=== PATIENT | male | born 1985 | race African-American/Black ===

== ENCOUNTER 2016-09-07 06:37 | Emergency (ER) | payer SELFPAY ==
[~2016-09-07] VITALS: Ht 157.5 cm; Wt 66.0 kg
[2016-09-07 06:39] VITALS: BP 128/66; PULSE 54; RESP 16; TEMP 98; O2SAT 100
[2016-09-07 07:35] LABS: AUTOMATED NEUTROPHIL # 2.4 TH/MM3 (1.8-7.7); BASOPHIL % 0.7 % (0.0-2.0); EOSINOPHIL # 0.1 TH/MM3 (0-0.4); EOSINOPHIL % 2.1 % (0.0-4.0); HEMATOCRIT 41.7 % (39.0-51.0); HEMO FLAGS DIFF FINAL; LYMPH % 36.3 % (9.0-44.0); LYMPHOCYTE # 1.6 TH/MM3 (1.0-4.8); MEAN CELL VOLUME 90.8 FL (80.0-100.0); MEAN CORPUSCULAR HEMOGLOBIN 31.4 PG (27.0-34.0); MEAN CORPUSCULAR HGB CONC 34.6 % (32.0-36.0); MONO % 7.3 % (0.0-8.0); NEUT % 53.6 % (16.0-70.0); PLATELET COUNT 135 TH/MM3 (150-450); RED BLOOD COUNT 4.59 MIL/MM3 (4.50-5.90); RED CELL DISTRIBUTION WIDTH 12.8 % (11.6-17.2); WHITE BLOOD COUNT 4.4 TH/MM3 (4.0-11.0)
[2016-09-07 07:41] LABS: BLOOD, URINE NEG (NEG); COMMENT (UR) CULT NOT INDICATED; CULTURE IF INDICATED CULT NOT INDICATED; GLUCOSE,URINE NEG (NEG); KETONE, URINE NEG (NEG); MUCUS URINE FEW /lpf (OCC); NITRITE,URINE NEG (NEG); SQUAMOUS EPITHELIAL CELL URINE <1 /hpf (0-5); URINE COLOR YELLOW (YELLW/STRAW)
[2016-09-07 07:50] LABS: ANION GAP 8 MEQ/L (5-15); AST (GOT) 24 U/L (15-37); BICARBONATE 27.4 MEQ/L (21.0-32.0); BLOOD UREA NITROGEN 14 MG/DL (7-18); CHLORIDE 106 MEQ/L (98-107); GLOMERULAR FILTRATION RATE 87 ML/MIN (>89); POTASSIUM 3.9 MEQ/L (3.5-5.1); SODIUM (NA) 141 MEQ/L (136-145)
[2016-09-07 07:54] LABS: ALKALINE PHOSPHATASE 70 U/L (45-117); ALT (GPT) 45 U/L (12-78); TOTAL BILIRUBIN ADULT 0.5 MG/DL (0.2-1.0)
--- NOTE | 2016-09-07 08:21 | PD ---
HPI Chief Complaint: Abdominal Pain Time Seen by Provider: 08:11 Travel History International Travel<30 days: No Contact w/Intl Traveler<30days: No Traveled to known affect area: No History of Present Illness HPI This is a 30-year-old male who presents to the emergency department with right sided chest and abdominal pain that started last night, severe, worsening, worse with movement and worse with deep breaths. 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 He denies any illicit drug use aside for marijuana. He denies any recent long trips or family history of blood clot. PFSH Past Medical History Diminished Hearing: No Social History Alcohol Use: Yes (Beer, Occasionally, 04/04/2016) Tobacco Use: No Substance Use: Yes (Marijuana, Daily, 04/05/2016) Allergies-Medications (Allergen,Severity, Reaction): Coded Allergies: No Known Allergies (Verified , 09/07/16) Reported Meds & Prescriptions Reported Meds & Active Scripts Active No Active Prescriptions or Reported Medications Physical Exam Narrative GENERAL:Well appearing, no acute distress SKIN: Warm and dry. HEAD: Atraumatic. Normocephalic. EYES: Pupils equal and round. No injection or drainage. ENT: Moist mucous membranes NECK: Trachea midline. CARDIOVASCULAR: Regular rate and rhythm. No murmur appreciated. Tender to palpation along the anterior right lower rib cage focally RESPIRATORY: Clear to auscultation. Breath sounds equal bilaterally. GASTROINTESTINAL: Abdomen soft, non-tender, nondistended. MUSCULOSKELETAL: No obvious deformities. NEUROLOGICAL: Awake and alert. No obvious cranial nerve deficits. Moving all extremities. PSYCHIATRIC: Appropriate mood and affect; insight and judgment normal. Data Data Last Documented VS Vital Signs Date Time Temp Pulse Resp B/P Pulse Ox O2 Delivery O2 Flow Rate FiO2 09/07/16 08:23 22 09/07/16 06:39 98.0 54 128/66 100 Orders Electrocardiogram (09/07/16 06:45) Complete Blood Count With Diff (09/07/16 07:05) Comprehensive Metabolic Panel (09/07/16 07:05) Urinalysis - C+S If Indicated (09/07/16 07:05) Iv Access Insert/Monitor (09/07/16 07:05) Oxygen Administration (09/07/16 07:05) Oximetry (09/07/16 07:05) Lipase (09/07/16 07:05) Chest, Single Ap (09/07/16 ) Ketorolac Inj (Toradol Inj) (09/07/16 08:30) Labs Laboratory Tests Test 09/07/16 09/07/16 07:20 07:26 Urine Color YELLOW Urine Turbidity CLEAR Urine pH 6.0 Urine Specific [place] 1.033 Urine Protein 30 mg/dL Urine Glucose (UA) NEG mg/dL Urine Ketones NEG mg/dL Urine Occult Blood NEG Urine Nitrite NEG Urine Bilirubin NEG Urine Urobilinogen 4.0 MG/DL Urine Leukocyte Esterase NEG Urine RBC 1 /hpf Urine WBC 1 /hpf Urine Squamous Epithelial <1 /hpf Cells Urine Mucus FEW /lpf Microscopic Urinalysis Comment CULT NOT INDICATED White Blood Count 4.4 TH/MM3 Red Blood Count 4.59 MIL/MM3 Hemoglobin 14.4 GM/DL Hematocrit 41.7 % Mean Corpuscular Volume 90.8 FL Mean Corpuscular Hemoglobin 31.4 PG Mean Corpuscular Hemoglobin 34.6 % Concent Red Cell Distribution Width 12.8 % Platelet Count 135 TH/MM3 Mean Platelet Volume 10.7 FL Neutrophils (%) (Auto) 53.6 % Lymphocytes (%) (Auto) 36.3 % Monocytes (%) (Auto) 7.3 % Eosinophils (%) (Auto) 2.1 % Basophils (%) (Auto) 0.7 % Neutrophils # (Auto) 2.4 TH/MM3 Lymphocytes # (Auto) 1.6 TH/MM3 Monocytes # (Auto) 0.3 TH/MM3 Eosinophils # (Auto) 0.1 TH/MM3 Basophils # (Auto) 0.0 TH/MM3 CBC Comment DIFF FINAL Differential Comment Sodium Level 141 MEQ/L Potassium Level 3.9 MEQ/L Chloride Level 106 MEQ/L Carbon Dioxide Level 27.4 MEQ/L Anion Gap 8 MEQ/L Blood Urea Nitrogen 14 MG/DL Creatinine 1.18 MG/DL Estimat Glomerular Filtration 87 ML/MIN Rate Random Glucose 89 MG/DL Calcium Level 8.7 MG/DL Total Bilirubin 0.5 MG/DL Aspartate Amino Transf 24 U/L (AST/SGOT) Alanine Aminotransferase 45 U/L (ALT/SGPT) Alkaline Phosphatase 70 U/L Total Protein 6.6 GM/DL Albumin 3.7 GM/DL Lipase 237 U/L [facility] Medical Decision Making Medical Screen Exam Complete: Yes Emergency Medical Condition: Yes Interpretation(s) No leukocytosis Electrolytes within normal limits Urinalysis negative for infection Chest x-ray: No acute process Differential Diagnosis Costochondritis, pleural effusion, pneumothorax, gastritis, pancreatitis Narrative Course This is a 30-year-old male who presents with right sided chest wall pain which is muscular in nature, hurts when he moves and hurts when he takes deep breaths. He is perc negative so I doubt pulmonary embolism. Labs were obtained which were reassuring and a chest x-ray was obtained which was negative for spontaneous pneumothorax or other acute process. I suspect the patient is costochondritis. He'll be discharged on anti-inflammatories. Diagnosis Primary Impression: Costochondritis Patient Instructions: General Instructions Additional Instructions: If you develop severe chest pain, shortness of breath, sweating, lightheadedness , dizziness or difficulty breathing return to the emergency department immediately. Followup with your primary care physician in 2-3 days if your symptoms are not resolved. Med/Other Pt SpecificInfo: Prescription(s) given Scripts Naproxen 500 Mg [id number] Mg PO BID PRN (PAIN SCALE 4 TO 10) #20 TAB Ref 0 Prov:Shahrzad Collado MD 09/07/16 Disposition: 01 DISCHARGE HOME Condition: Stable Shahrzad Collado MD Sep 07, 2016 08:21
[2016-09-07] MEDS ORDERED: KETOROLAC TROMETHAMINE 60 MG/2 ML (IM) VIAL IM ONE (08:30)
--- NOTE | 2016-09-07 09:05 | RADRPT ---
EXAM DATE/TIME: 09/07/2016 08:23 [place] COMPARISON: No previous studies available for comparison. INDICATIONS : Chest pain and difficulty taking in a deep breath. MEDICAL HISTORY : None. SURGICAL HISTORY : None. ENCOUNTER: Initial ACUITY: 2 days PAIN SCORE: 5/10 LOCATION: Bilateral chest FINDINGS: A single view of the chest demonstrates the lungs to be symmetrically aerated without evidence of mas s, infiltrate or effusion. The cardiomediastinal contours are unremarkable. Osseous structures are intact. CONCLUSION: 1. No acute cardiopulmonary findings identified. Raul Yancey MD on September 07, 2016 at 9:03 Board Certified Radiologist. This report was verified electronically.
[2016-09-07] MEDS ORDERED: NAPR500T PO (09:22)
[2016-09-07 09:30] VITALS: RESP 20
--- NOTE | 2016-09-07 12:26 | EKG ---
Date Performed: 09/07/2016 Time Performed: 07:11:29 PTAGE: 30 years EKG: SINUS BRADYCARDIA BORDERLINE RIGHT AXIS DEVIATION BORDERLINE ECG NO PREVIOUS TRACING DOCTOR: Harpreet Lawson Interpretating Date/Time 09/07/2016 12:22:22
== END 2016-09-07 10:02 | disposition home or self-care (01) ==
LOC: NEPE 06:37
DX: M94.0 Chondrocostal junction syndrome [Tietze] (principal); R10.9 Unspecified abdominal pain; R94.31 Abnormal electrocardiogram [ECG] [EKG]; F12.90 Cannabis use, unspecified, uncomplicated
CPT/HCPCS: 71010; 80053; 81001; 83690; 85025; 93005; 96372; 99285; J1885

== ENCOUNTER 2018-01-14 15:28 | Emergency (ER) | payer OTHER ==
[~2018-01-14] VITALS: Ht 152.4 cm; Wt 68.0 kg
[~2018-01-14 15:28] MED LIST: NAPR500T2 PO
[2018-01-14 15:39] VITALS: BP 155/73; PULSE 92; RESP 18; TEMP 98.6; O2SAT 99
--- NOTE | 2018-01-14 16:18 | PD ---
HPI . Laceration Chief Complaint: Laceration/Skin Injury Time Seen by Provider: 15:59 Travel History International Travel<30 days: No Contact w/Intl Traveler<30days: No Traveled to known affect area: No History of Present Illness HPI Patient presents with a chief complaint of a laceration to his right third finger. He states that he was working on a car sometime before lunch. His wrench slipped and he cut his hand on something under the garcia of the car. He is not sure exactly what it was that he cut it on. He does not know the date of his last tetanus shot. He reports pain in his finger since that time which she rates 8/10. [facility] Past Medical History Medical History: Denies Significant Hx Diminished Hearing: No Past Surgical History Surgical History: No Previous Surgery Social History Alcohol Use: Yes (occasionally ) Tobacco Use: No Substance Use: Yes (Marijuana, 04/05/2016) Allergies-Medications (Allergen,Severity, Reaction): Coded Allergies: No Known Allergies (Verified , 09/07/16) Reported Meds & Prescriptions Reported Meds & Active Scripts Active Naproxen 500 Mg Tab 500 Mg PO BID PRN Review of Systems Except as stated in HPI: all other systems reviewed are Neg Physical Exam Narrative GENERAL: Awake and alert and in no acute distress. SKIN: Warm and dry. He has a 1 cm laceration on the dorsal aspect of the right third finger distal to the MTP joint but proximal to the PIP joint. He is distally neurovascularly intact. HEAD: Normocephalic/atraumatic. EYES: Pupils are equal. Extraocular movements are intact. NECK: Normal range of motion. CARDIOVASCULAR: Regular rate and rhythm. RESPIRATORY: Nonlabored respirations. MUSCULOSKELETAL: Atraumatic. NEUROLOGICAL: Nonfocal. PSYCHIATRIC: Appropriate mood and affect. Data Data Last Documented VS Vital Signs Date Time Temp Pulse Resp B/P (MAP) Pulse Ox O2 Delivery O2 Flow Rate FiO2 01/14/18 15:39 98.6 92 18 155/73 (100) 99 MDM Medical Decision Making Medical Screen Exam Complete: Yes Emergency Medical Condition: Yes Differential Diagnosis Differential diagnosis includes but is not limited to skin laceration, muscular laceration, tendon laceration, neurovascular laceration. Narrative Course This patient presents with a laceration of his right third finger. This tetanus needs to be updated. Procedures Procedure Narrative LACERATION LOCATION: Right third finger LENGTH: 1 cm NUMBER OF STITCHES/CELSO: 2 REPAIR: The area of the laceration was prepped with Betadine. The laceration was infiltrated with 1% plain lidocaine. The wound was closed using 5-0 Prolene. This was a single layer repair. A sterile dressing was applied. The patient was advised to keep the dressing clean and dry. Patient tolerated the procedure well. Diagnosis Primary Impression: Finger laceration Qualified Codes: S61.212A - Laceration without foreign body of right middle finger without damage to nail, initial encounter Patient Instructions: General Instructions, Laceration (DC) Additional Instructions: Clean the wound twice daily with soap and water. Apply a thin layer of Neosporin ointment after you wash it. See your doctor in 7 days for suture removal. Seek care sooner for redness, drainage, warmth, unusual pain. Disposition: 01 DISCHARGE HOME Condition: Stable Rosanne Lundberg MD January 14, 2018 16:18
[2018-01-14] MEDS ORDERED: TETANUS/DIPHTHERIA TOXOID ADULT 0.5 ML VIAL IM ONE (16:30)
== END 2018-01-14 17:00 | disposition home or self-care (01) ==
LOC: NEPD 15:28
DX: S61.212A Laceration without foreign body of right middle finger without damage to nail, initial encounter (principal); Z23 Encounter for immunization; W45.8XXA Other foreign body or object entering through skin, initial encounter
CPT/HCPCS: 12001; 90471; 90714

== ENCOUNTER 2018-01-21 13:23 | Emergency (ER) | payer OTHER ==
[~2018-01-21] VITALS: Ht 160 cm; Wt 68.0 kg
[2018-01-21 13:32] VITALS: BP 137/75; PULSE 69; RESP 18; TEMP 98.8; O2SAT 100
--- NOTE | 2018-01-21 13:45 | PD ---
HPI Chief Complaint: Wound/Suture/Staple Re-Check Time Seen by Provider: 13:43 Travel History International Travel<30 days: No Contact w/Intl Traveler<30days: No Traveled to known affect area: No History of Present Illness HPI 32-year-old male presents to the emergency department for suture removal to his right middle finger. The sutures were placed on January 14. He denies swelling, redness, drainage from the wound site. Denies fever, vomiting. Symptoms are mild in severity. No known aggravating or relieving factors. No primary care provider. No known allergies. Has no other medical complaints. No other modifying factors or associated signs and symptoms. PFSH Past Medical History Diminished Hearing: No Social History Alcohol Use: Yes (occasionally ) Tobacco Use: No Substance Use: Yes (Marijuana, 04/05/2016) Allergies-Medications (Allergen,Severity, Reaction): Coded Allergies: No Known Allergies (Verified , 09/07/16) Reported Meds & Prescriptions Reported Meds & Active Scripts Active Naproxen 500 Mg Tab 500 Mg PO BID PRN Review of Systems Except as stated in HPI: all other systems reviewed are Neg Physical Exam Narrative GENERAL: Well-nourished, well-developed black male patient, in no acute distress SKIN: Warm and dry. Base of right third finger, to the anterior aspect, with laceration that is well approximated with sutures intact; without erythema, edema, drainage. No signs of infection. HEAD: Atraumatic. Normocephalic. EYES: Pupils equal and round. No scleral icterus. No injection or drainage. ENT: Mucosa pink and moist. Airway patent. NECK: Trachea midline. CARDIOVASCULAR: Regular rate. RESPIRATORY: No accessory muscle use. GASTROINTESTINAL: Flat. MUSCULOSKELETAL: No obvious deformities. No clubbing. No cyanosis. No edema. NEUROLOGICAL: Awake and alert. Oriented 3. No obvious cranial nerve deficits. Motor grossly within normal limits. Normal speech. PSYCHIATRIC: Appropriate mood and affect; insight and judgment normal. Data Data Last Documented VS Vital Signs Date Time Temp Pulse Resp B/P (MAP) Pulse Ox O2 Delivery O2 Flow Rate FiO2 01/21/18 13:32 98.8 69 18 137/75 (95) 100 Orders Orders Ed Discharge Order (01/21/18 13:48) [facility] Medical Decision Making Medical Screen Exam Complete: Yes Emergency Medical Condition: Yes Medical Record Reviewed: Yes Differential Diagnosis Encounter for suture removal, wound recheck, medical clearance Narrative Course 32-year-old male presents for suture removal of laceration to the base of his right third finger. Sutures removed. Patient tolerated well. Instructed patient to follow up with primary care provider. Patient verbalizes understanding and agreement with treatment plan. Patient is medically cleared and stable for discharge. Discussed reasons to return to the emergency department. Patient agrees with treatment plan. The patients vital signs are stable and the patient is stable for outpatient follow-up and treatment. Patient discharged home, stable and in no acute distress. Diagnosis Primary Impression: Encounter for removal of sutures Referrals: [facility] Primary Care Physician Patient Instructions: General Instructions, Stitches Removal (ED) Additional Instructions: Ibuprofen and/or Tylenol as directed and as needed for pain Follow-up with primary care provider Return to the emergency department immediately with worsening of symptoms Med/Other Pt SpecificInfo: No Change to Meds, No Meds Exist/No RX given Disposition: 01 DISCHARGE HOME Condition: Stable Citlali Galvan January 21, 2018 13:45
== END 2018-01-21 14:15 | disposition home or self-care (01) ==
LOC: NEPD 13:23
DX: Z48.02 Encounter for removal of sutures (principal)
CPT/HCPCS: 99281